=== PATIENT | male | born 2000 | race Caucasian/White ===

== ENCOUNTER 2023-06-04 08:47 | Emergency (ER) | payer OTHER ==
[~2023-06-04] VITALS: Ht 188 cm; Wt 106.1 kg
[2023-06-04 09:53] VITALS: BP 145/88
== END 2023-06-04 12:04 | disposition home or self-care (01) ==
LOC: ER 08:47
DX: S93.401A Sprain of unspecified ligament of right ankle, initial encounter (principal); X50.1XXA Overexertion from prolonged static or awkward postures, initial encounter
CPT/HCPCS: 73610